=== PATIENT | male | born 1940 | race Caucasian/White ===

== ENCOUNTER → 2018-12-12 | Day surgery (SDC) | payer MEDICARE, OTHER ==
[~2018-12-12] VITALS: Ht 172.7 cm; Wt 75.2 kg
[~2018-12-12] MED LIST: ACETAMINOPHEN 325 MG TABLET PO PRN; ASPI-515 PO; CEFAZOLIN 1,000 MG ONE; CHOL2000 PO; CYAN25003 PO; DABI150C PO; DEXAMETHASONE 4 MG/ML, 1ML ONE; DIPHENHYDRAMINE 50 MG/ML, 1ML IVPush PRN; EPHEDRINE 50 MG/ML, 1ML ONE; FENTANYL PF 100 MCG/2ML IV PRN; FENTANYL PF 100 MCG/2ML ONE; GABA300C10 PO; GENTAMICIN 80 MG/2 ML ONE; GLUC-149 PO; GLYCOPYRROLATE 0.2MG/1ML, 5ML ONE; HALOPERIDOL 5 MG/ML IV PRN; HYDROcodone/APAP 5/325 TABLET PO PRN; HYDROmorphone 1 MG/ML, 1ML INJ IVPush PRN; HYDROmorphone 2 MG/ML, 1ML IVPush PRN; HYDROmorphone 2 MG/ML, 1ML ONE; LABETALOL 5MG/ML, 20ML IV PRN; LACTATED RINGERS 1,000 ML IV SCH; MEPERIDINE/PF 25MG/0.5ML IVPush PRN; METO-93 PO; METOPROLOL 1 MG/ML, 5ML IV PRN; METOPROLOL 1 MG/ML, 5ML IVPush PRN; METOPROLOL 1 MG/ML, 5ML ONE; MORPHINE SULFATE 4 MG/ML, 1ML IVPush PRN; MORPHINE SULFATE 4 MG/ML, 1ML ONE; NEOSTIGMINE 1 MG/ML, 10ML ONE; OMEG1CAP23 PO; ONDANSETRON 2MG/ML, 2ML IVPush ONE; ONDANSETRON 2MG/ML, 2ML IVPush PRN; ONDANSETRON 2MG/ML, 2ML ONE; OXYcodone 5 MG/5 ML ORAL.SOL UDC PO PRN; PROCHLORPERAZINE 5 MG/ML, 2ML IV PRN; PROMETHAZINE 25 MG/ML, 1ML IV PRN; PROPOFOL 10 MG/ML, 20ML ONE; ROCURONIUM 10MG/ML,5ML ONE; SILD100T PO; SIMV40TA3 PO; SODIUM CHLORIDE FLUSH 10ML SYR IVF ONE; SODIUM CHLORIDE FLUSH 10ML SYR IVF PRN; SUCCINYLCHOLINE 20 MG/ML, 10ML ONE; TURM500C4 PO; VIT1TABL32 PO; [UNRECOGNIZED DRUG - OTHER] PO; [UNRECOGNIZED DRUG - OTHER] PO; [UNRECOGNIZED DRUG - OTHER] PO; hydrALAzine 20 MG/ML, 1ML IV PRN
[2018-12-12] MEDS: MORPHINE SULFATE 4 MG/ML, 1ML IVPush PRN ×2 (15:35→16:18)
--- NOTE | 2018-12-12 15:42 | NUR ---
CONTACT WITH PT, 78 YR OLD MALE HERE WITH C/O LEFT FLANK PAIN THAT BEGAN APPROX 1130. IV STARTED, LABS DRAWN, PT MEDICATED FOR 10/10 PAIN. PAIN STILL SHARP BUT DECREASED TO 8/10 AT THIS TIME. PT TO CT VIA JULY.
[2018-12-12 15:46] LABS: BASOPHILS # (AUTO) 0.02 x10^3/uL (0-0.1); BASOPHILS % (AUTO) 0 % (0-1); EOSINOPHILS # (AUTO) 0.16 x10^3/uL (0-0.4); EOSINOPHILS % (AUTO) 2 % (1-7); LYMPHOCYTES # (AUTO) 2.43 x10^3/uL (1-3.4); LYMPHOCYTES % (AUTO) 29 % (22-44); MD NO; MEAN CORPUSCULAR HEMOGLOBIN 31.8 pg (27.5-34.5); MEAN CORPUSCULAR HGB CONC 32.9 g/dL (33.2-36.2); MEAN CORPUSCULAR VOLUME 96.5 fL (81-97); MEAN PLATELET VOLUME 8.1 fL (7.4-10.4); MONOCYTES # (AUTO) 0.57 x10^3/uL (0.2-0.8); MONOCYTES % (AUTO) 7 % (2-9); NEUTROPHILS # (AUTO) 5.34 x10^3/uL (1.8-6.8); NEUTROPHILS % (AUTO) 63 % (42-75); PLATELET COUNT 196 x10^3/uL (130-400); RED BLOOD COUNT 4.36 x10^6/uL (4.38-5.82); RED CELL DISTRIBUTION WIDTH 14.5 % (9.4-14.8)
[2018-12-12 15:54] LABS: ALANINE AMINOTRANSFERASE 23 U/L (12-78); ALBUMIN 3.8 g/dL (3.4-5.0); ANION GAP 8 mmol/L (5-15); CALCIUM 8.6 mg/dL (8.5-10.1); CHLORIDE 106 mmol/L (98-107); CREATININE 1.21 mg/dL (0.7-1.3)
[2018-12-12 15:57] LABS: ALKALINE PHOSPHATASE 49 U/L (45-117); BILIRUBIN,TOTAL 0.6 mg/dL (0.2-1.0); TOTAL PROTEIN 6.9 g/dL (6.4-8.2)
--- NOTE | 2018-12-12 16:02 | NUR ---
PT RETURN TO ROOM. PT INITIALLY WITH INCREASED PAIN "FROM MOVING AROUND" PTS UPDATED ON POC. CONT TO MONITOR.
--- NOTE | 2018-12-12 16:12 | NUR ---
PT ABLE TO PROVIDE VERY SMALL AMT OF URINE. WALKED TO LAB.
[2018-12-12 16:34] LABS: MICROSCOPIC INDICATED
--- NOTE | 2018-12-12 16:36 | NUR ---
PT DOZING INTERMITTENTLY, AROUSES EASILY, RA SATS DECREASED TO 84%, PLACED ON 2L NC. SATS INCREASED TO 94%. PAIN DECREASED TO 8/10 "I DONT DARE MOVE" AWAITING TEST RESULTS. PTS AT BEDSIDE.
[2018-12-12 17:00] LABS: CULTURE INDICATED? NO
--- NOTE | 2018-12-12 17:26 | NUR ---
DR TATE AT BEDSIDE TO RE-EVAL PT
--- NOTE | 2018-12-12 17:47 | NUR ---
PT AWAKE, PT WITH PAIN DECREASED TO 1-2/10 AT THIS TIME. NO NEEDS EXPRESSED AT THIS TIME.
--- NOTE | 2018-12-12 18:16 | NUR ---
RECEIVED CALL FROM [facility] IN PRE OP. PT TO GO TO SURGERY TONIGHT. REPORT GIVEN, POC DISCUSSED.
--- NOTE | 2018-12-12 18:38 | NUR ---
PT WITH PAIN INCREASED TO 9/10. PT MEDICATED ORDERED. PT FAMILY AT BEDSIDE, UPDATED ON POC.
--- NOTE | 2018-12-12 18:55 | NUR ---
REPORT TO CHON MARIE
--- NOTE | 2018-12-12 19:02 | NUR ---
BEDSIDE REPORT RECEIVED FROM FRANK BROWER. ASSUMED CARE OF PT. PT RESTING ON GURNEY, STATES PAIN IS NOW A 5/10 AFTER LAST PAIN MED ADMINISTRATION. APPEARS COMFORTABLE. AWAITING PT TO GO TO SURGERY AT THIS TIME. DENIES ANY NEEDS. AT BEDSIDE. CALL LIGHT WITHIN REACH.
[2018-12-12 23:00] VITALS: BP 126/72
[2018-12-12 23:15] VITALS: BP 120/69
== END | disposition home or self-care (01) ==
LOC: EDSTATUS 11:05 → ED 17:34 → SDC 18:12 → EDIP 18:12 → UNDOADMIN 18:12 → EDIP 22:57 → 4NOR 22:57 → UNDODISIN 23:50
PROVIDERS: ATTEND Urology
DX: N20.2 Calculus of kidney with calculus of ureter (principal); I10 Essential (primary) hypertension; I48.91 Unspecified atrial fibrillation; I25.10 Atherosclerotic heart disease of native coronary artery without angina pectoris; Z95.0 Presence of cardiac pacemaker; Z95.1 Presence of aortocoronary bypass graft; Z88.8 Allergy status to other drugs, medicaments and biological substances
CPT/HCPCS: 36415; 52356; 74018; 74176; 76000; 80053; 81001; 83690; 85025; 88300; 93005; C1758; C2617; J0330; J0690; J1100; J1170; J1580; J2405; J2704; J2710; J3010; 82360; G0378

== ENCOUNTER → 2019-01-20 | Outpatient (CLI) | payer MEDICARE ==
[~2019-01-20] MED LIST changes: -ACETAMINOPHEN 325 MG TABLET PO PRN; -CEFAZOLIN 1,000 MG ONE; -DEXAMETHASONE 4 MG/ML, 1ML ONE; -DIPHENHYDRAMINE 50 MG/ML, 1ML IVPush PRN; -EPHEDRINE 50 MG/ML, 1ML ONE; -FENTANYL PF 100 MCG/2ML IV PRN; -FENTANYL PF 100 MCG/2ML ONE; -GENTAMICIN 80 MG/2 ML ONE; -GLYCOPYRROLATE 0.2MG/1ML, 5ML ONE; -HALOPERIDOL 5 MG/ML IV PRN; -HYDROcodone/APAP 5/325 TABLET PO PRN; -HYDROmorphone 1 MG/ML, 1ML INJ IVPush PRN; -HYDROmorphone 2 MG/ML, 1ML IVPush PRN; -HYDROmorphone 2 MG/ML, 1ML ONE; -LABETALOL 5MG/ML, 20ML IV PRN; -LACTATED RINGERS 1,000 ML IV SCH; -MEPERIDINE/PF 25MG/0.5ML IVPush PRN; -METOPROLOL 1 MG/ML, 5ML IV PRN; -METOPROLOL 1 MG/ML, 5ML IVPush PRN; -METOPROLOL 1 MG/ML, 5ML ONE; -MORPHINE SULFATE 4 MG/ML, 1ML IVPush PRN; -MORPHINE SULFATE 4 MG/ML, 1ML ONE; +MULT-717 PO; -NEOSTIGMINE 1 MG/ML, 10ML ONE; -ONDANSETRON 2MG/ML, 2ML IVPush ONE; -ONDANSETRON 2MG/ML, 2ML IVPush PRN; -ONDANSETRON 2MG/ML, 2ML ONE; -OXYcodone 5 MG/5 ML ORAL.SOL UDC PO PRN; -PROCHLORPERAZINE 5 MG/ML, 2ML IV PRN; -PROMETHAZINE 25 MG/ML, 1ML IV PRN; -PROPOFOL 10 MG/ML, 20ML ONE; -ROCURONIUM 10MG/ML,5ML ONE; -SODIUM CHLORIDE FLUSH 10ML SYR IVF ONE; -SODIUM CHLORIDE FLUSH 10ML SYR IVF PRN; -SUCCINYLCHOLINE 20 MG/ML, 10ML ONE; -hydrALAzine 20 MG/ML, 1ML IV PRN
[2019-01-20 09:10] LABS: BASOPHILS # (AUTO) 0.02 x10^3/uL (0-0.1); BASOPHILS % (AUTO) 0 % (0-1); EOSINOPHILS # (AUTO) 0.15 x10^3/uL (0-0.4); EOSINOPHILS % (AUTO) 3 % (1-7); LYMPHOCYTES # (AUTO) 1.56 x10^3/uL (1-3.4); LYMPHOCYTES % (AUTO) 27 % (22-44); MD NO; MEAN CORPUSCULAR HEMOGLOBIN 32.4 pg (27.5-34.5); MEAN CORPUSCULAR HGB CONC 33.1 g/dL (33.2-36.2); MEAN PLATELET VOLUME 7.7 fL (7.4-10.4); MONOCYTES # (AUTO) 0.56 x10^3/uL (0.2-0.8); MONOCYTES % (AUTO) 10 % (2-9); NEUTROPHILS # (AUTO) 3.61 x10^3/uL (1.8-6.8); NEUTROPHILS % (AUTO) 61 % (42-75); PLATELET COUNT 192 x10^3/uL (130-400); RED BLOOD COUNT 4.31 x10^6/uL (4.38-5.82); RED CELL DISTRIBUTION WIDTH 14.4 % (9.4-14.8)
[2019-01-20 09:16] LABS: MICROSCOPIC AUTO
[2019-01-20 09:26] LABS: ALBUMIN 3.6 g/dL (3.4-5.0); ANION GAP 4 mmol/L (5-15); CALCIUM 8.8 mg/dL (8.5-10.1); CHLORIDE 107 mmol/L (98-107)
[2019-01-20 09:30] LABS: ALANINE AMINOTRANSFERASE 26 U/L (12-78); ALKALINE PHOSPHATASE 59 U/L (45-117); BILIRUBIN,TOTAL 1.1 mg/dL (0.2-1.0); CREATININE 1.15 mg/dL (0.7-1.3); TOTAL PROTEIN 7.1 g/dL (6.4-8.2)
== END | disposition home or self-care (01) ==
LOC: STAR 07:42
PROVIDERS: ATTEND Urology
DX: Z01.818 Encounter for other preprocedural examination (principal); N20.9 Urinary calculus, unspecified; R94.31 Abnormal electrocardiogram [ECG] [EKG]
CPT/HCPCS: 36415; 80053; 81001; 85025; 87077; 87086; 87186; 93005

== ENCOUNTER 2019-01-24 08:09 | Outpatient (CLI) | payer MEDICARE | END 2019-01-24 23:59 | disposition home or self-care (01) | LOC: RAD 08:09 | PROVIDERS: ATTEND Urology | DX: N20.9 Urinary calculus, unspecified (principal); Z96.0 Presence of urogenital implants | CPT/HCPCS: 74018 ==

== ENCOUNTER 2019-01-27 07:15 | Day surgery (SDC) | payer MEDICARE ==
[~2019-01-27] VITALS: Ht 172.7 cm; Wt 73.2 kg
[2019-01-27] MEDS ORDERED: LACTATED RINGERS 1,000 ML IV SCH (07:42)
[2019-01-27] MEDS ORDERED: ACETAMINOPHEN 500 MG TABLET PO ONE (08:00)
[2019-01-27 08:12] VITALS: BP 110/71
[2019-01-27] MEDS ORDERED: PROMETHAZINE 25 MG/ML, 1ML IV PRN (09:00)
[2019-01-27] MEDS ORDERED: LABETALOL 5MG/ML, 20ML IV PRN (09:00)
[2019-01-27] MEDS ORDERED: OXYcodone 5 MG/5 ML ORAL.SOL UDC PO PRN (09:00)
[2019-01-27] MEDS ORDERED: METOPROLOL 1 MG/ML, 5ML IV PRN (09:00)
[2019-01-27] MEDS ORDERED: MEPERIDINE/PF 25MG/0.5ML IVPush PRN (09:00)
[2019-01-27] MEDS ORDERED: HALOPERIDOL 5 MG/ML IV PRN (09:00)
[2019-01-27] MEDS ORDERED: FENTANYL PF 100 MCG/2ML IV PRN (09:00)
[2019-01-27] MEDS ORDERED: HYDROmorphone 2 MG/ML, 1ML IVPush PRN (09:00)
[2019-01-27] MEDS ORDERED: hydrALAzine 20 MG/ML, 1ML IV PRN (09:00)
[2019-01-27] MEDS ORDERED: PROCHLORPERAZINE 5 MG/ML, 2ML IV PRN (09:00)
[2019-01-27] MEDS ORDERED: DIPHENHYDRAMINE 50 MG/ML, 1ML IVPush PRN (09:00)
[2019-01-27] MEDS ORDERED: FENTANYL PF 100 MCG/2ML ONE (09:25)
[2019-01-27] MEDS ORDERED: KETOROLAC 30 MG/1 ML ONE (09:38)
[2019-01-27] MEDS ORDERED: CEFAZOLIN 1,000 MG ONE (09:38)
[2019-01-27] MEDS ORDERED: SUCCINYLCHOLINE 20 MG/ML, 10ML ONE (09:38)
[2019-01-27] MEDS ORDERED: DEXAMETHASONE 4 MG/ML, 1ML ONE (09:38)
[2019-01-27] MEDS ORDERED: PROPOFOL 10 MG/ML, 20ML ONE (09:38)
[2019-01-27] MEDS ORDERED: ONDANSETRON 2MG/ML, 2ML ONE (09:38)
== END 2019-01-27 14:45 | disposition home or self-care (01) ==
LOC: OUT 07:15
PROVIDERS: ATTEND Urology
DX: N20.0 Calculus of kidney (principal); I25.10 Atherosclerotic heart disease of native coronary artery without angina pectoris; I10 Essential (primary) hypertension; I25.2 Old myocardial infarction; I48.91 Unspecified atrial fibrillation; E78.5 Hyperlipidemia, unspecified; Z79.82 Long term (current) use of aspirin; Z79.899 Other long term (current) drug therapy; Z87.442 Personal history of urinary calculi; Z88.8 Allergy status to other drugs, medicaments and biological substances; Z96.0 Presence of urogenital implants; Z95.0 Presence of cardiac pacemaker; Z95.1 Presence of aortocoronary bypass graft
CPT/HCPCS: 50080; 52351; 74018; 76000; 82360; 88300; C1758; C1769; C2617; J0330; J0690; J1100; J1885; J2405; J2704; J3010; J7120

== ENCOUNTER → 2019-02-03 | Outpatient (CLI) | payer MEDICARE | END | disposition home or self-care (01) | LOC: RAD 09:23 | PROVIDERS: ATTEND Urology | DX: N20.9 Urinary calculus, unspecified (principal) | CPT/HCPCS: 74018 ==

== ENCOUNTER → 2019-07-17 | Outpatient (CLI) | payer MEDICARE | END | disposition home or self-care (01) | LOC: CVU 13:45 | PROVIDERS: ATTEND Internal Medicine Cardiovascular Disease | DX: I65.23 Occlusion and stenosis of bilateral carotid arteries (principal); E78.5 Hyperlipidemia, unspecified; Z95.1 Presence of aortocoronary bypass graft | CPT/HCPCS: 93880 ==

== ENCOUNTER → 2020-10-25 | Outpatient (CLI) | payer MEDICARE ==
[~2020-10-25] MED LIST changes: -ASPI-515 PO; +ASPI-963 PO; +SIMV40TA20 PO; -SIMV40TA3 PO
== END | disposition home or self-care (01) ==
LOC: CVU 12:31
PROVIDERS: ATTEND Internal Medicine Cardiovascular Disease
DX: I65.23 Occlusion and stenosis of bilateral carotid arteries (principal); E78.5 Hyperlipidemia, unspecified; R09.89 Other specified symptoms and signs involving the circulatory and respiratory systems; Z98.61 Coronary angioplasty status
CPT/HCPCS: 93880